=== PATIENT | male | born 1955 | race Caucasian/White ===

== ENCOUNTER → 2021-10-24 | Outpatient (REF) | payer MEDICARE, OTHER ==
[2021-10-24 13:07] LABS: ALBUMIN 3.5 GM/DL (3.2-5.2); ALT/SGPT 45 U/L (12-78); BILIRUBIN,TOTAL 0.4 MG/DL (0.2-1.0); BLOOD UREA NITROGEN 13 MG/DL (7-18); CALCIUM LEVEL 8.9 MG/DL (8.8-10.2); CARBON DIOXIDE LEVEL 29 MEQ/L (21-32); CHLORIDE LEVEL 105 MEQ/L (98-107); CHOLESTEROL LEVEL 274 MG/DL (<200); CHOLESTEROL RISK RATIO 6.523 (<5); CREATININE FOR GFR 0.92 MG/DL (0.70-1.30); GLOMERULAR FILTRATION RATE > 60.0 (>49); GLUCOSE, FASTING 104 MG/DL (70-100); HDL CHOLESTEROL 42 MG/DL (>40); NON-HDL-C 232 MG/DL; POTASSIUM SERUM 4.3 MEQ/L (3.5-5.1); SODIUM LEVEL 141 MEQ/L (136-145); TOTAL PROTEIN 6.9 GM/DL (6.4-8.2); TRIGLYCERIDES LEVEL 603 MG/DL (<150)
[2021-10-24 14:03] LABS: TOTAL 25(OH) VITAMIN D 32.7 NG/ML (30.0-100.0)
== END ==
LOC: M LABDRAWC 11:10
PROVIDERS: ATTEND Family Medicine
DX: E78.2 Mixed hyperlipidemia (principal); E55.9 Vitamin D deficiency, unspecified; I10 Essential (primary) hypertension

== ENCOUNTER 2022-04-18 16:56 | Emergency (ER) | payer MEDICARE, BC ==
[~2022-04-18] VITALS: Ht 185.4 cm; Wt 133.1 kg
[2022-04-18] MEDS ORDERED: ALLO10TA PO (17:50)
[2022-04-18] MEDS ORDERED: LANS15CA PO (17:50)
[2022-04-18] MEDS ORDERED: VALS80TA PO (17:50)
[2022-04-18] MEDS ORDERED: ASPI81CH33 PO (17:50)
[2022-04-18] MEDS ORDERED: METO1TAB33 PO (17:50)
[2022-04-18] MEDS ORDERED: METOPROLOL 5 MG/5 ML VIAL IV ONE (18:40)
[2022-04-18 19:28] LABS: BASO % 0.4 % (0.0-1.0); EOS # 0.1 10^3/uL (0.0-0.5); EOS % 1.2 % (0.0-3.0); HEMATOCRIT 43.8 % (42.0-52.0); HEMOGLOBIN 15.4 g/dl (13.5-17.5); LYMPH # 1.8 10^3/uL (1.5-5.0); LYMPH % 23.5 % (24.0-44.0); MEAN CORPUSCULAR HEMOGLOBIN 34.1 pg (27.0-33.0); MEAN CORPUSCULAR HGB CONC 35.2 g/dl (32.0-36.5); MEAN CORPUSCULAR VOLUME 97.1 fl (80.0-96.0); MONO # 0.8 10^3/uL (0.0-0.8); MONO % 10.6 % (2.0-8.0); NEUTROPHILS # 4.8 10^3/uL (1.5-8.5); NEUTROPHILS % 63.8 % (36.0-66.0); PLATELET COUNT, AUTOMATED 207 10^3/uL (150-450); RED BLOOD COUNT 4.51 10^6/uL (4.30-6.10); WHITE BLOOD COUNT 7.5 10^3/uL (4.0-10.0)
[2022-04-18] MEDS ORDERED: METOPROLOL 5 MG/5 ML VIAL IV STA (19:30)
[2022-04-18 19:40] LABS: PARTIAL THROMBOPLASTIN TIME 33.8 SECONDS (25.9-37.0)
[2022-04-18] MEDS ORDERED: ASPIRIN 81 MG CHEW TABLET PO ONE (19:50)
[2022-04-18] MEDS ORDERED: ASPIRIN 325 MG TAB PO ONE (19:50)
[2022-04-18 19:52] LABS: INR 0.93; PROTHROMBIN TIME 12.9 SECONDS (12.7-14.5)
[2022-04-18 19:54] VITALS: BP 177/97
[2022-04-18] MEDS ORDERED: fentaNYL 100 MCG/2 ML INJECTION IV ONE ×4 (20:00→23:00)
[2022-04-18] MEDS ORDERED: ISOVUE-370 76% 100ML VIAL As Ordered ONE (20:06)
[2022-04-18 20:37] LABS: CK-MB VALUE MASS < 1.0 NG/ML (<3.6); CPK CREATINE PHOSPHOKINASE 74 U/L (39-308); MB/CK RELATIVE INDEX 1.35 (< OR =4)
[2022-04-18 20:38] LABS: RSV AMPLIFICATION NEGATIVE (NEGATIVE)
[2022-04-18] MEDS ORDERED: CLOPIDOGREL 300 MG TAB (PLAVIX) PO STA (22:23)
[2022-04-18] MEDS ORDERED: NS 500 ML IV ONE (22:25)
[2022-04-18 22:27] LABS: APPEARANCE, URINE CLEAR (CLEAR); BACTERIA, URINE AUTO NEGATIVE (NEGATIVE); BILIRUBIN, URINE AUTO NEGATIVE (NEGATIVE); BLOOD, URINE BLOOD NEGATIVE (NEGATIVE); COLOR, URINE YELLOW (YELLOW); GLUCOSE, URINE (UA) AUTO NEGATIVE (NEGATIVE); KETONE, URINE AUTO NEGATIVE (NEGATIVE); LEUKOCYTE ESTERASE, URINE AUTO NEGATIVE (NEGATIVE); NITRITE, URINE AUTO NEGATIVE (NEGATIVE); PROTEIN, URINE AUTO NEGATIVE (NEGATIVE); RBC, URINE AUTO 0 /HPF (0-3); SQUAMOUS EPITHELIAL CELL UR AU 0 /HPF (0-6); UROBILINOGEN, URINE AUTO 0.2 mg/dL (0.0-2.0); WBC, URINE AUTO 1 /HPF (0-3)
[2022-04-18 22:34] LABS: SPECIFIC GRAVITY URINE AUTO >1.060 (1.002-1.035)
[2022-04-18 22:55] LABS: CK-MB VALUE MASS < 1.0 NG/ML (<3.6); CPK CREATINE PHOSPHOKINASE 84 U/L (39-308); MB/CK RELATIVE INDEX 1.19 (< OR =4)
[2022-04-19] MEDS ORDERED: fentaNYL 100 MCG/2 ML INJECTION IV ONE ×3 (00:15)
[2022-04-19 00:28] VITALS: BP 144/78
== END 2022-04-19 00:30 | disposition short-term general hospital (02) ==
LOC: M ED 16:56
DX: I10 Essential (primary) hypertension (principal); I63.532 Cerebral infarction due to unspecified occlusion or stenosis of left posterior cerebral artery; I66.02 Occlusion and stenosis of left middle cerebral artery; E34.8 Other specified endocrine disorders; Z79.82 Long term (current) use of aspirin; Z79.899 Other long term (current) drug therapy
CPT/HCPCS: 36415; 70450; 70496; 70498; 80047; 81001; 82550; 82553; 84484; 85025; 85610; 85730; 87631; 93005; 93041; 94760; 96374; 96375; 96376; 99285; J3010; Q9967

== ENCOUNTER 2022-06-19 08:50 | Emergency (ER) | payer MEDICARE, BC ==
[~2022-06-19] VITALS: Ht 185.4 cm; Wt 126.4 kg
[~2022-06-19 08:50] MED LIST: ALLO10TA PO; ASPI81CH33 PO; LANS15CA PO; METO1TAB33 PO; VALS80TA PO
[2022-06-19] MEDS ORDERED: AMIT25TA17 (09:01)
[2022-06-19] MEDS ORDERED: NS 1,000 ML IV ONE (11:35)
[2022-06-19 11:59] LABS: BASO % 0.5 % (0.0-1.0); EOS % 0.7 % (0.0-3.0); HEMATOCRIT 42.5 % (42.0-52.0); HEMOGLOBIN 15.1 g/dl (13.5-17.5); LYMPH # 1.2 10^3/uL (1.5-5.0); LYMPH % 20.1 % (24.0-44.0); MEAN CORPUSCULAR HGB CONC 35.5 g/dl (32.0-36.5); MEAN CORPUSCULAR VOLUME 98.6 fl (80.0-96.0); MONO # 0.7 10^3/uL (0.0-0.8); MONO % 11.4 % (2.0-8.0); NEUTROPHILS # 3.9 10^3/uL (1.5-8.5); NEUTROPHILS % 66.8 % (36.0-66.0); PLATELET COUNT, AUTOMATED 177 10^3/uL (150-450); RED BLOOD COUNT 4.31 10^6/uL (4.30-6.10); WHITE BLOOD COUNT 5.8 10^3/uL (4.0-10.0)
[2022-06-19 12:31] LABS: ALBUMIN 3.8 GM/DL (3.2-5.2); ALT/SGPT 35 U/L (12-78); BILIRUBIN,DIRECT 0.1 MG/DL (0.0-0.2); BILIRUBIN,TOTAL 0.7 MG/DL (0.2-1.0); BLOOD UREA NITROGEN 13 MG/DL (7-18); CARBON DIOXIDE LEVEL 25 MEQ/L (21-32); CHLORIDE LEVEL 107 MEQ/L (98-107); CREATININE FOR GFR 0.98 MG/DL (0.70-1.30); GLOMERULAR FILTRATION RATE > 60.0 (>49); GLUCOSE, FASTING 110 MG/DL (70-100); LIPASE 126 U/L (73-393); POTASSIUM SERUM 4.6 MEQ/L (3.5-5.1); SODIUM LEVEL 139 MEQ/L (136-145); TOTAL PROTEIN 7.3 GM/DL (6.4-8.2)
[2022-06-19] MEDS ORDERED: ISOVUE-370 76% 100ML VIAL As Ordered ONE (12:36)
[2022-06-19 12:38] LABS: RSV AMPLIFICATION NEGATIVE (NEGATIVE)
[2022-06-19] MEDS ORDERED: CARA1TAB6 PO (13:42)
[2022-06-19 13:51] VITALS: BP 158/78
== END 2022-06-19 13:52 | disposition home or self-care (01) ==
LOC: M ED 08:50
DX: R11.2 Nausea with vomiting, unspecified (principal); J02.9 Acute pharyngitis, unspecified; I10 Essential (primary) hypertension; J44.9 Chronic obstructive pulmonary disease, unspecified; M10.9 Gout, unspecified; Z79.899 Other long term (current) drug therapy; Z79.82 Long term (current) use of aspirin
CPT/HCPCS: 74177; 80048; 80076; 83690; 85025; 87631; 87880; 96360; 99284; Q9967

== ENCOUNTER 2022-12-29 09:15 | Emergency (ER) | payer MEDICARE, BC ==
[~2022-12-29] VITALS: Ht 185.4 cm; Wt 124.1 kg
[~2022-12-29 09:15] MED LIST changes: +AMIT25TA17; +CARA1TAB6 PO
[2022-12-29] MEDS ORDERED: VITA500064 PO (09:32)
[2022-12-29] MEDS ORDERED: LOPR1TAB7 PO (09:32)
[2022-12-29] MEDS ORDERED: VITA100T89 PO (09:32)
[2022-12-29] MEDS ORDERED: RA N1TAB PO (09:32)
[2022-12-29] MEDS ORDERED: METO1TAB33 (09:32)
[2022-12-29] MEDS ORDERED: D3 +TAB PO (09:32)
[2022-12-29] MEDS ORDERED: AMLO1TAB24 (09:32)
[2022-12-29 10:42] LABS: BASO % 0.6 % (0.0-1.0); EOS # 0.1 10^3/uL (0.0-0.5); EOS % 1.1 % (0.0-3.0); HEMATOCRIT 43.7 % (42.0-52.0); HEMOGLOBIN 15.3 g/dl (13.5-17.5); LYMPH # 1.6 10^3/uL (1.5-5.0); LYMPH % 25.2 % (24.0-44.0); MEAN CORPUSCULAR HEMOGLOBIN 34.5 pg (27.0-33.0); MEAN CORPUSCULAR VOLUME 98.4 fl (80.0-96.0); MONO # 0.9 10^3/uL (0.0-0.8); NEUTROPHILS # 3.9 10^3/uL (1.5-8.5); NEUTROPHILS % 59.6 % (36.0-66.0); PLATELET COUNT, AUTOMATED 206 10^3/uL (150-450); RED BLOOD COUNT 4.44 10^6/uL (4.30-6.10); WHITE BLOOD COUNT 6.5 10^3/uL (4.0-10.0)
[2022-12-29 11:05] LABS: LIPASE 31 U/L (12-53)
[2022-12-29 11:07] LABS: ALBUMIN 4.1 G/DL (3.2-5.2); ALKALINE PHOSPHATASE 72 U/L (46-116); ALT/SGPT 37 U/L (7.0-40); AST/SGOT 35 U/L (<34); BILIRUBIN,DIRECT 0.3 MG/DL (<0.4); BILIRUBIN,TOTAL 1.2 MG/DL (0.3-1.2); BLOOD UREA NITROGEN 13 MG/DL (9-23); CALCIUM LEVEL 8.8 MG/DL (8.3-10.6); CARBON DIOXIDE LEVEL 29 MMOL/L (20-31); CHLORIDE LEVEL 102 MMOL/L (98-107); GLOMERULAR FILTRATION RATE > 60.0 (>49); GLUCOSE, FASTING 108 MG/DL (74-106); POTASSIUM SERUM 5.1 MMOL/L (3.5-5.1); SODIUM LEVEL 137 MMOL/L (136-145); TOTAL PROTEIN 7.4 G/DL (5.7-8.2)
[2022-12-29] MEDS ORDERED: GI COCKTAIL 50ML BTL(HYOSCYAMINE/MAALOX/LIDOCAINE VISCOUS)(1:3:1) PO ONE (12:15)
[2022-12-29] MEDS ORDERED: NS 1,000 ML IV ONE (12:15)
[2022-12-29] MEDS ORDERED: PANTOPRAZOLE 40MG VIAL IV ONE (12:15)
[2022-12-29] MEDS ORDERED: SUCRALFATE 1 GM TAB PO ONE (12:15)
[2022-12-29] MEDS ORDERED: ONDANSETRON 4MG 2ML VIAL IV ONE (12:15)
[2022-12-29] MEDS ORDERED: ISOVUE-370 76% 100ML VIAL As Ordered ONE (12:32)
[2022-12-29] MEDS ORDERED: ONDA4TAB6 PO (14:14)
[2022-12-29] MEDS ORDERED: CARA1TAB6 PO (14:14)
[2022-12-29] MEDS ORDERED: PROT1TAB2 PO (14:14)
[2022-12-29 14:25] VITALS: BP 149/69
== END 2022-12-29 14:35 | disposition home or self-care (01) ==
LOC: M ED 09:15
DX: R10.11 Right upper quadrant pain (principal); R10.31 Right lower quadrant pain; I10 Essential (primary) hypertension; K21.9 Gastro-esophageal reflux disease without esophagitis; J44.9 Chronic obstructive pulmonary disease, unspecified; Z95.5 Presence of coronary angioplasty implant and graft; I70.0 Atherosclerosis of aorta; K57.30 Diverticulosis of large intestine without perforation or abscess without bleeding; Z79.82 Long term (current) use of aspirin; Z79.899 Other long term (current) drug therapy
CPT/HCPCS: 74177; 80048; 80076; 83690; 85025; 96361; 96374; 96375; 99284; C9113; J2405; Q9967

== ENCOUNTER 2023-01-01 18:49 | Emergency (ER) | payer MEDICARE, BC ==
[~2023-01-01] VITALS: Ht 185.4 cm; Wt 125.0 kg
[~2023-01-01 18:49] MED LIST changes: +AMLO1TAB24; +D3 +TAB PO; +LOPR1TAB7 PO; +METO1TAB33; +ONDA4TAB6 PO; +PROT1TAB2 PO; +RA N1TAB PO; +VITA100T89 PO; +VITA500064 PO
[2023-01-01 19:33] LABS: BASO % 0.2 % (0.0-1.0); EOS % 0.3 % (0.0-3.0); HEMATOCRIT 38.8 % (42.0-52.0); HEMOGLOBIN 13.7 g/dl (13.5-17.5); LYMPH # 1.4 10^3/uL (1.5-5.0); LYMPH % 16.3 % (24.0-44.0); MEAN CORPUSCULAR HEMOGLOBIN 34.5 pg (27.0-33.0); MEAN CORPUSCULAR HGB CONC 35.3 g/dl (32.0-36.5); MEAN CORPUSCULAR VOLUME 97.7 fl (80.0-96.0); MONO % 11.2 % (2.0-8.0); NEUTROPHILS # 6.2 10^3/uL (1.5-8.5); NEUTROPHILS % 71.7 % (36.0-66.0); PLATELET COUNT, AUTOMATED 205 10^3/uL (150-450); RED BLOOD COUNT 3.97 10^6/uL (4.30-6.10); WHITE BLOOD COUNT 8.7 10^3/uL (4.0-10.0)
[2023-01-01 20:05] LABS: CK-MB VALUE MASS < 1.0 NG/ML (<3.6); LIPASE 26 U/L (12-53)
[2023-01-01 20:06] LABS: CPK CREATINE PHOSPHOKINASE 139 U/L (46-171); MB/CK RELATIVE INDEX 0.71 (< OR =4)
[2023-01-01 20:07] LABS: ALBUMIN 4.1 G/DL (3.2-5.2); ALKALINE PHOSPHATASE 82 U/L (46-116); ALT/SGPT 29 U/L (7.0-40); AST/SGOT 25 U/L (<34); BILIRUBIN,DIRECT 0.2 MG/DL (<0.4); BILIRUBIN,TOTAL 0.7 MG/DL (0.3-1.2); BLOOD UREA NITROGEN 17 MG/DL (9-23); CALCIUM LEVEL 8.6 MG/DL (8.3-10.6); CARBON DIOXIDE LEVEL 26 MMOL/L (20-31); CHLORIDE LEVEL 103 MMOL/L (98-107); CREATININE FOR GFR 0.97 MG/DL (0.70-1.30); GLOMERULAR FILTRATION RATE > 60.0 (>49); GLUCOSE, FASTING 97 MG/DL (74-106); POTASSIUM SERUM 3.6 MMOL/L (3.5-5.1); SODIUM LEVEL 139 MMOL/L (136-145); TOTAL PROTEIN 6.8 G/DL (5.7-8.2)
[2023-01-01] MEDS ORDERED: ISOVUE-370 76% 100ML VIAL As Ordered ONE (20:10)
[2023-01-01] MEDS ORDERED: GI COCKTAIL 50ML BTL(HYOSCYAMINE/MAALOX/LIDOCAINE VISCOUS)(1:3:1) PO ONE (21:15)
[2023-01-01 21:20] LABS: CK-MB VALUE MASS < 1.0 NG/ML (<3.6)
[2023-01-01 21:22] LABS: CPK CREATINE PHOSPHOKINASE 120 U/L (46-171); MB/CK RELATIVE INDEX 0.83 (< OR =4)
[2023-01-01 21:30] VITALS: BP 161/81
== END 2023-01-01 21:53 | disposition home or self-care (01) ==
LOC: M ED 18:49
DX: I71.20 Thoracic aortic aneurysm, without rupture, unspecified (principal); R10.13 Epigastric pain; R07.9 Chest pain, unspecified; M48.061 Spinal stenosis, lumbar region without neurogenic claudication; I25.10 Atherosclerotic heart disease of native coronary artery without angina pectoris; I10 Essential (primary) hypertension; E78.5 Hyperlipidemia, unspecified; J44.9 Chronic obstructive pulmonary disease, unspecified; Z95.5 Presence of coronary angioplasty implant and graft; Z98.61 Coronary angioplasty status; Z79.82 Long term (current) use of aspirin; Z79.899 Other long term (current) drug therapy
CPT/HCPCS: 71045; 71275; 74174; 80048; 80076; 82550; 82553; 83690; 83880; 84484; 85025; 93005; 93041; 94760; 99285; Q9967

== ENCOUNTER → 2023-02-25 | Outpatient (REF) | payer MEDICARE, BC ==
[2023-02-25 19:20] LABS: BLOOD UREA NITROGEN 16 MG/DL (9-23); CREATININE FOR GFR 0.81 MG/DL (0.70-1.30); GLOMERULAR FILTRATION RATE > 60.0 (>49)
== END ==
LOC: M LABDRAWC 16:53
PROVIDERS: ATTEND Orthopaedic Surgery Orthopaedic Surgery of the Spine
DX: M54.50 Low back pain, unspecified (principal)

== ENCOUNTER 2024-08-15 08:59 | Emergency (ER) | payer MEDICARE, BC ==
[~2024-08-15] VITALS: Ht 185.4 cm; Wt 127.6 kg
[~2024-08-15 08:59] MED LIST changes: -AMIT25TA17; +AMIT25TA19; +ONDA-282 PO; -ONDA4TAB6 PO; -VITA500064 PO; +VITA500065 PO
[2024-08-15] MEDS ORDERED: METO1TAB7 (09:15)
[2024-08-15] MEDS ORDERED: ALLO300T2 (09:15)
[2024-08-15 10:04] LABS: BASO # 0.1 10^3/uL (0.0-0.2); BASO % 0.4 % (0.0-1.0); EOS # 0.3 10^3/uL (0.0-0.5); HEMATOCRIT 40.6 % (42.0-52.0); HEMOGLOBIN 14.2 g/dl (13.5-17.5); LYMPH # 1.1 10^3/uL (1.5-5.0); LYMPH % 7.6 % (24.0-44.0); MEAN CORPUSCULAR HEMOGLOBIN 34.9 pg (27.0-33.0); MEAN CORPUSCULAR VOLUME 99.8 fl (80.0-96.0); MONO # 1.4 10^3/uL (0.0-0.8); MONO % 9.5 % (2.0-8.0); NEUTROPHILS # 11.4 10^3/uL (1.5-8.5); NEUTROPHILS % 79.9 % (36.0-66.0); PLATELET COUNT, AUTOMATED 310 10^3/uL (150-450); RED BLOOD COUNT 4.07 10^6/uL (4.30-6.10); WHITE BLOOD COUNT 14.3 10^3/uL (4.0-10.0)
[2024-08-15 10:08] LABS: ERYTHROCYTE SEDIMENTATION RATE 63 mm/hr (0-20)
[2024-08-15] MEDS ORDERED: ISOVUE-370 76% 100ML VIAL As Ordered ONE (10:16)
[2024-08-15] MEDS: NS 1,000 ML IV ONE (10:18)
[2024-08-15] MEDS: ACETAMINOPHEN *IV* 1,000 MG in IV 1 EA IV ONE (10:18)
[2024-08-15 10:36] LABS: ALBUMIN 3.3 G/DL (3.2-5.2); ALKALINE PHOSPHATASE 110 U/L (46-116); ALT/SGPT 23 U/L (7.0-40); AST/SGOT 24 U/L (<34); BILIRUBIN,DIRECT 0.3 MG/DL (<0.4); BILIRUBIN,TOTAL 0.9 MG/DL (0.3-1.2); BLOOD UREA NITROGEN 8 MG/DL (9-23); CALCIUM LEVEL 9.1 MG/DL (8.3-10.6); CARBON DIOXIDE LEVEL 28 MMOL/L (20-31); CHLORIDE LEVEL 103 MMOL/L (98-107); CREATININE FOR GFR 0.88 MG/DL (0.70-1.30); GLOMERULAR FILTRATION RATE > 60.0 (>49); GLUCOSE, FASTING 159 MG/DL (74-106); POTASSIUM SERUM 4.7 MMOL/L (3.5-5.1); SODIUM LEVEL 138 MMOL/L (136-145); TOTAL PROTEIN 7.2 G/DL (5.7-8.2)
[2024-08-15 10:44] LABS: PROCALCITONIN 0.05 ng/ml
[2024-08-15] MEDS: PIPERACILLIN/TAZOBACTAM SOD 3.375 GM in D5W MINI-BAG PLUS 50 ML IV ONE (12:02)
[2024-08-15] MEDS: diazePAM 10MG/2ML SYRINGE IV ONE ×2 (12:02→13:37)
[2024-08-15 13:38] VITALS: BP 125/63; TEMP 98; O2SAT 97
== END 2024-08-15 13:40 | disposition short-term general hospital (02) ==
LOC: M ED 08:59
DX: K66.8 Other specified disorders of peritoneum (principal); I10 Essential (primary) hypertension; Z85.46 Personal history of malignant neoplasm of prostate; J44.9 Chronic obstructive pulmonary disease, unspecified; K21.9 Gastro-esophageal reflux disease without esophagitis; Z79.1 Long term (current) use of non-steroidal anti-inflammatories (NSAID); Z79.899 Other long term (current) drug therapy
CPT/HCPCS: 74177; 80048; 80076; 81001; 83605; 84145; 85025; 85652; 86140; 87040; 96374; 96375; 99284; J0131; J2543; J3360; Q9967

== ENCOUNTER → 2025-06-09 | Outpatient (REF) | payer MEDICARE, BC ==
[~2025-06-09] MED LIST changes: +ALLO300T2; +METO1TAB7
[2025-06-09 19:04] LABS: CALCIUM LEVEL 9.1 MG/DL (8.3-10.6); CARBON DIOXIDE LEVEL 27 MMOL/L (20-31); CHLORIDE LEVEL 104 MMOL/L (98-107); CREATININE FOR GFR 0.69 MG/DL (0.70-1.30); GLOMERULAR FILTRATION RATE > 90.0 (>49); POTASSIUM SERUM 4.3 MMOL/L (3.5-5.1); SODIUM LEVEL 141 MMOL/L (136-145)
== END ==
LOC: M LABDRAWC 17:58 → M LAB REF 17:58
PROVIDERS: ATTEND Urology
DX: C61 Malignant neoplasm of prostate (principal)

== ENCOUNTER → 2025-06-17 | Outpatient (CLI) | payer MEDICARE, BC ==
[~2025-06-17] MED LIST changes: +ISOVUE-370 76% 100 ML VIAL As Ordered ONE
== END ==
LOC: M RAD 14:58
PROVIDERS: ATTEND Physician Assistant Medical
DX: N50.811 Right testicular pain (principal); C61 Malignant neoplasm of prostate
CPT/HCPCS: 36415; 74178; 76870; 84153; 93976; Q9967